=== PATIENT | male | born 1995 | race Caucasian/White ===

== ENCOUNTER 2022-05-02 08:16 | Emergency (ER) | payer OTHER, SELFPAY ==
[2022-05-02 08:12] VITALS: BP 99/65; PULSE 70; RESP 18; TEMP 38.3; O2SAT 98; BMI 21.7
--- NOTE | 2022-05-02 08:12 | PC.NURSE ---
ED MD AT BEDSIDE FOR EVALUATION
[2022-05-02 08:13] VITALS: BMI 21.7
--- NOTE | 2022-05-02 08:26 | PC.NURSE ---
ED MD AT BEDSIDE FOR PROCEDURE
[2022-05-02 08:37] VITALS: BP 111/60; PULSE 84; RESP 18; O2SAT 98
--- NOTE | 2022-05-02 08:43 | HMH.EDGENADL ---
ED Disposition Clinical Impression: Dental abscess, Dental caries Disposition: Home, Self-Care Condition on Discharge: Good Instructions: DI for Dental Pain, DI for Tooth Decay, DI for Tooth Abscess Additional Instructions: Take clindamycin as prescribed. Odd and ibuprofen as needed for pain. See a dentist as soon as possible for further evaluation. Return immediately if you have an uncontrollable fever greater than 102 degrees, difficulty breathing or shortness of breath, persistent vomiting, or inability to swallow. Prescriptions: Hydrocod/Acet 5/325 mg [Odd 5/325mg tablet] 1 tab PO Q6HP PRN #10 tab PRN Reason: Pain Transmission Status: Sent to [facility] Ibuprofen [Ibuprofen 800mg Tablet] 800 mg PO Q8HP PRN #15 tab PRN Reason: Moderate Pain Transmission Status: Pending to [facility] clindamycin HCL [Clindamycin HCl] 300 mg PO QID #40 cap Transmission Status: Pending to [facility] Referrals: Provider,Referral, MD [Primary Care Provider] - - Critical Care Critical Care Time: No Attestation: On 05/02/22, the high probability of a clinically significant, sudden or life threatening deterioration of the following system(s) required my full and direct attention, intervention and personal management. The time I documented below is in addition to time spent performing reported procedures but includes the following listed in this critical care notation. Medical Decision Making - Adrian Inquiry Pt receiving controlled substance: Yes Adrian was queried for this patient: Yes Risks and benefits of using a controlled substance: were discussed with pt by me Vital Signs: 05/02/22 08:12 05/02/22 08:37 Temperature 100.9 F H Temperature Source Oral Pulse Rate 84 Pulse Rate [Radial] 70 Respiratory Rate 18 18 Blood Pressure 111/60 Blood Pressure [Left Arm] 99/65 L Blood Pressure Mean [Left Arm] 76 Blood Pressure Source Automatic Cuff Blood Pressure Source [Left Arm] Automatic Cuff Blood Pressure Position Sitting Blood Pressure Position [Left Arm] Sitting 02 Sat by Pulse Oximetry 98 98 Oxygen Delivery Method Room Air Room Air Orders (Tests/Meds): ED MEDICATIONS Generic Name Dose Route Start Last Admin Trade Name Freq PRN Reason Stop Dose Admin Hydrocodone Bitart/Acetaminophen 1 tab 05/02/22 08:42 Hydrocodone/Apap 5/325 Mg Tablet PO 05/02/22 08:43 ONCE ONE Clindamycin HCl 300 mg 05/02/22 08:42 Clindamycin 150mg Capsule PO 05/02/22 08:43 ONCE ONE Medical Decision Narrative: Discussed with patient attempting incision and drainage of dental abscess. He is in agreement and consents. General Adult HPI - General Chief complaint: Dental/Oral Stated complaint: JAW PAIN Time Seen by Provider: 05/02/22 08:20 Mode of Arrival: EMS Limitations: No Limitations Description of Symptoms (Recalled from ER Triage Doc. by RN): PT BROUGHT IN VIA EMS FOR 3 DAYS OF RIGHT SIDED JAW AND GUM PAIN - History of Present Illness HPI narrative: Brought in by ambulance with complaint of facial pain and swelling for 3 days. Denies pain in any specific teeth, but has pain and swelling of his right jaw. He feels hot but has not taken his temperature. No drainage. He does not have a dentist and has not seen a dentist in years. - Related Data Previous Rx's Medication Instructions Recorded Hydrocod/Acet 5/325 mg [Odd 1 tab PO Q6HP PRN #10 tab 05/02/22 5/325mg tablet] Ibuprofen [Ibuprofen 800mg 800 mg PO Q8HP PRN #15 tab 05/02/22 Tablet] clindamycin HCL [Clindamycin HCl] 300 mg PO QID #40 cap 05/02/22 Allergies Allergy/AdvReac Type Severity Reaction Status Date / Time PCN (penicillin) Allergy Intermediate I-RASH Uncoded 09/18/17 15:01 [facility] History - Hepatitis A Screen Attestation statement:: This patient has been screened for Hepatitis A risk factors. I have reviewed the patient's past medical history: Yes
[2022-05-02 09:00] VITALS: BP 143/75; PULSE 85; RESP 18; TEMP 36.9; O2SAT 98
== END 2022-05-02 09:00 | disposition home or self-care (01) ==
PROVIDERS: Emergency Provider Emergency Medicine
DX: K04.7 Periapical abscess without sinus (principal); Z88.0 Allergy status to penicillin
CPT/HCPCS: 99212; G0463

== ENCOUNTER 2022-11-15 17:49 | Emergency (ER) | payer OTHER, SELFPAY ==
[2022-11-15 17:50] VITALS: BP 102/70; PULSE 80; RESP 18; TEMP 36.8; O2SAT 96; BMI 20.7
--- NOTE | 2022-11-15 18:12 | ECG_ITS ---
APPROVED REPORT Exam: Resting ECG HR:57 bpm ECG Measurements Heart Rate 57 AXES MT 128 P 74 QRSd 105 QRS 89 QT 381 T 69 QTc 375 Conclusion SINUS BRADYCARDIA BORDERLINE ECG UNCONFIRMED REPORT Electronically signed by : Fred Nice MD 11/17/2022 08:59:17
--- NOTE | 2022-11-15 18:13 | HMH.EDGENADL ---
Discharge Plan Disposition Patient Disposition: Home, Self-Care Condition: Good Prescriptions Prescriptions: New ondansetron 4 mg tablet,disintegrating 4 mg PO Q8H PRN (Reason: nausea and vomiting) 4 Days Qty: 7 0RF Referrals Follow up/Referrals: Provider,Referral, [Primary Care Provider] - See instructions Activity Restrictions/Add. Instructions Additional Instructions/Restrictions: Drink plenty fluids such as Gatorade or Pedialyte. Return for severe abdominal pain or other concerns. Rest and try to minimize stress. Clinical Impressions Clinical Impression: Vomiting Instructions Patient Instructions: DI for Diarrhea and Traveler's Diarrhea -- Adult, DI for Diarrhea and Traveler's Diarrhea -- Child, DI for Nausea -- Adult, DI for Nausea -- Child Discharge ED Provider: Jefe Burt General Adult HPI General Chief complaint: Nausea/Vomiting/Diarrhea Stated complaint: dizzy, vomiting Time Seen by Provider: 11/15/22 18:07 Mode of Arrival: Wheelchair Source of Information: Patient Limitations: No Limitations Description of Symptoms (Recalled from ER Triage Doc. by RN): 27 M presents after becoming really anxious at home and at that time he began vomiting, sweating, and feeling very faint. He did not pass out. NAD on arrival History of Present Illness HPI narrative: Patient presents complaining of vomiting and dizzy spell that began earlier this evening while showering. He states he had a stressful event and subsequent developed symptoms he does not voice feeling homicidal or suicidal. He denies chest or abdominal pain at this time. Related Data Previous Rx's Medication Instructions Recorded ondansetron 4 mg disintegrating 4 mg PO Q8H PRN nausea and 11/15/22 tablet vomiting 4 days #7 tabs Allergies Allergy/AdvReac Type Severity Reaction Status Date / Time PCN (penicillin) Allergy Intermediate I-RASH Uncoded 09/18/17 15:01 [facility] Disclaimer: The information contained in this section may have been updated after the patient was seen, as this information can be updated by other users. Social History Smoking Status: Current some day smoker alcohol intake: never current occupational status: other Travel in the last 8 weeks: None ROS Obtained: Yes All systems reviewed & no additional complaints except as documented Physical Exam General General appearance: alert and in no apparent distress Head Head exam: atraumatic, normocephalic and normal inspection Eye Eye exam: Present normal appearance, PERRL and EOMI ENT ENT exam: Present normal exam, normal oropharynx, mucous membranes moist, TM's normal bilaterally and normal external ear exam Neck Neck exam: Present normal inspection, full ROM and trachea midline; Absent meningismus or lymphadenopathy Chest Chest inspection: Present normal inspection and symmetric chest wall rise; Absent tenderness Respiratory Respiratory exam: Present normal lung sounds bilaterally; Absent respiratory distress Cardiovascular Cardiovascular exam: Present regular rate and normal rhythm; Absent JVD Abdominal Exam Abdominal exam: Present soft and normal bowel sounds; Absent distention, tenderness or guarding Extremities Exam Extremities exam: Present normal inspection, full ROM and normal capillary refill; Absent calf tenderness Back Exam Back exam: Present normal inspection; Absent tenderness Neurological Exam Neurological exam: Present alert and oriented X3 Psychiatric Psychiatric exam: Present normal affect and normal mood Skin Skin exam: Present warm, dry, intact and normal color Lymphatic Lymphatic Findings: no adenopathy Medical Decision Making Medical Records Medical records reviewed: Yes I reviewed the patient's medical records. Adrian Inquiry Pt receiving controlled substance: No Adrian was queried for this patient: No Vital Signs: 11/15/22 17:50 Temperature 98.3 F Temperature Source
[2022-11-15 18:16] LABS: Basophils # 0.1 K/mm3 (0-0.2); Basophils % 1.1 % (0.1-2.0); Eosinophils % 0.6 % (0.1-12.0); Hematocrit 42.4 % (42.0-52.0); Hemoglobin 14.1 g/dL (14.1-18.0); Lymphocytes # 1.6 K/mm3 (0.7-4.5); Lymphocytes % 21.2 % (10-50); Mean Corpuscular HGB Conc 33.4 g/dL (31.8-35.4); Mean Corpuscular Hemoglobin 30.6 pg (27.0-31.2); Mean Corpuscular Volume 91.6 fl (80-94); Mean Platelet Volume 7.6 fl (7.4-10.4); Monocytes # 0.6 K/mm3 (0.1-1.0); Monocytes % 7.3 % (1.7-9.3); Neutrophils # 5.4 K/mm3 (1.8-7.8); Neutrophils % 69.9 % (37.0-80.0); Platelet Count 395 K/mm3 (142-424); Red Blood Count 4.63 M/mm3 (4.60-6.20); Red Cell Distribution Width 13.1 % (11.5-17.5); White Blood Count 7.7 K/mm3 (4.8-10.8)
[2022-11-15 18:29] LABS: Alanine Aminotransferase 18 U/L (12-78); Albumin/Globulin Ratio 1.4 (1.1-1.8); Alkaline Phosphatase 66 U/L (38-126); Anion Gap 11.8 mEq/L (5-15); Aspartate Amino Transferase 24 U/L (17-59); Bilirubin,Total 1.4 mg/dl (0.2-1.3); Blood Urea Nitrogen 17 mg/dl (9-20); Calcium 9.4 mg/dl (8.4-10.2); Carbon Dioxide 27 mmol/L (22.0-30.0); Chloride 107 mmol/L (98-107); Creatinine Clearance Estimated 96 mL/min (50-200); Estimated Glomerular Filt Rate 91 ml/min (>60); GFR (African American) 110 ML/MIN (>60); Globulin 3.6 g/dL (1.3-3.2); Glucose 117 mg/dl (74-100); Potassium 3.8 mmoL/L (3.5-5.1); Sodium 142 mmol/L (136-145); Total Protein,Serum 8.6 g/dl (6.3-8.2)
[2022-11-15 19:05] VITALS: BP 119/70; PULSE 84; RESP 17; TEMP 36.8; O2SAT 96
== END 2022-11-15 19:13 | disposition home or self-care (01) ==
PROVIDERS: Emergency Provider Emergency Medicine
DX: R42 Dizziness and giddiness (principal); R11.10 Vomiting, unspecified; F17.210 Nicotine dependence, cigarettes, uncomplicated
CPT/HCPCS: 80053; 85025; 93005; 96361; 96374; 99285; J2405

== ENCOUNTER 2023-11-15 17:05 | Emergency (ER) | payer OTHER, SELFPAY ==
[2023-11-15 17:16] VITALS: BP 119/65; PULSE 60; RESP 18; TEMP 36.8; O2SAT 99; BMI 20.3
--- NOTE | 2023-11-15 17:45 | ECG_ITS ---
APPROVED REPORT Exam: Resting ECG HR:52 bpm ECG Measurements Heart Rate [address] 129 P 73 QRSd 107 QRS 93 QT 389 T 71 QTc 369 Conclusion SINUS BRADYCARDIA BORDERLINE RIGHT AXIS DEVIATION [QRS AXIS > 90] BORDERLINE ECG UNCONFIRMED REPORT Electronically signed by : Fred Nice MD 11/15/2023 19:55:13
--- NOTE | 2023-11-15 17:58 | ED_ITS ---
Discharge Plan Disposition Patient Disposition: Home, Self-Care Prescriptions Prescriptions: New ondansetron 4 mg tablet,disintegrating 4 mg PO Q6H PRN (Reason: nausea and vomiting) Qty: 10 0RF famotidine [Pepcid] 20 mg tablet 20 mg PO BID 28 Days Qty: 56 0RF No Action ondansetron 4 mg tablet,disintegrating 4 mg PO Q8H PRN (Reason: nausea and vomiting) 4 Days Qty: 7 0RF Referrals Follow up/Referrals: Fred Nice MD [Primary Care Provider] - See instructions Activity Restrictions/Add. Instructions Additional Instructions/Restrictions: Zofran every 6 hours under the tongue for nausea and vomiting. Take before meals to encourage appetite. Pepcid (famotidine) twice daily for 4 weeks to help with inflammation in your stomach. Call your family doctor to establish care for this visit to the emergency department and schedule follow-up within 48 hours to ensure improvement. If you have any worsening of your condition or any other concerning signs or symptoms, return to the emergency department or your primary care doctor for further evaluation. Clinical Impressions Clinical Impression: Vomiting Qualifiers: Vomiting type: unspecified Nausea presence: with nausea Qualified Code(s): R11.2 - Nausea with vomiting, unspecified Instructions Patient Instructions: DI for Diarrhea and Traveler's Diarrhea -- Adult, DI for Diarrhea and Traveler's Diarrhea -- Child, DI for Nausea -- Adult, DI for Nausea -- Child Discharge ED Provider: Jefe Tran General Adult HPI General Chief complaint: Nausea/Vomiting/Diarrhea Stated complaint: nausea, weak Time Seen by Provider: 11/15/23 17:13 Mode of Arrival: Ambulatory Source of Information: Patient Limitations: No Limitations Description of Symptoms (Recalled from ER Triage Doc. by RN): Patient reports weakness and vomiting since yesterday. Patient denies any fever or diarrhea. History of Present Illness HPI narrative: Otherwise healthy 28-year-old male presenting with vomiting and weakness. Started yesterday, 11/14. Nonbloody, nonbilious vomiting. Patient has no other associated symptoms including fevers, chills, chest pain, shortness of breath, abdominal pain, flank pain, dysuria, hematuria, diarrhea, or any other concerns. No sick contacts that he knows of. Vomiting is not associated with p.o. intake. Related Data Previous Rx's Medication Instructions Recorded ondansetron 4 mg disintegrating 4 mg PO Q8H PRN nausea and 11/15/22 tablet vomiting 4 days #7 tabs famotidine 20 mg tablet (Pepcid) 20 mg PO BID 4 weeks #56 tabs 11/15/23 ondansetron 4 mg disintegrating 4 mg PO Q6H PRN nausea and 11/15/23 tablet vomiting #10 tabs Allergies Allergy/AdvReac Type Severity Reaction Status Date / Time PCN (penicillin) Allergy Intermediate I-RASH Uncoded 09/18/17 15:01 [facility] Disclaimer: The information contained in this section may have been updated after the patient was seen, as this information can be updated by other users. Social History Smoking Status: Former smoker alcohol intake: never current occupational status: other Travel in the last 8 weeks: None ROS Obtained: Yes All systems reviewed & no additional complaints except as documented Physical Exam General General appearance: alert and in no apparent distress Head Head exam: atraumatic and normocephalic Eye Eye exam: Present normal appearance, PERRL and EOMI ENT ENT exam: Present mucous membranes moist Neck Neck exam: Present normal inspection, full ROM and trachea midline Respiratory Respiratory exam: Absent respiratory distress, wheezes, stridor, accessory muscle use or prolonged expiratory phase Cardiovascular Cardiovascular exam: Present normal rhythm Abdominal Exam Abdominal exam: Present soft; Absent distention, tenderness, guarding, rebound or rigidity Extremities Exam Extremities exam: Absent edema Neurological Exam Neurological exam: Present alert, oriented X3, CN II-XII intact and normal gait; Absent motor sensory deficit Skin Skin exam: Present warm and dry; Absent diaphoresis or erythema Medical Decision Making Medical Records Medical records reviewed: Yes I reviewed the patient's medical records. Adrian Inquiry Pt receiving controlled substance: No Adrian was queried for this patient: No Vital Signs: 11/15/23 17:16 11/15/23 18:41 Temperature 98.3 F Temperature Source Oral Pulse Rate 75 Pulse Rate [Right Brachial] 60 Respiratory Rate 18 Blood Pressure 116/77 Blood Pressure [Right Arm] 119/65 Blood Pressure Mean [Right Arm] 83 Blood Pressure Source [Right Arm] Automatic Cuff Blood Pressure Position [Right Arm] Sitting 02 Sat by Pulse Oximetry 99 97 Oxygen Delivery Method Room Air Room Air Lab Data Lab Results 11/15/23 18:12: WBC 6.3, RBC 4.56 L, Hgb 14.6, Hct 42.2, MCV 92.5, MCH 32.1 H, MCHC 34.7, RDW 13.4, Plt Count 294, MPV 7.5, Neut % (Auto) 65.0, Lymph % (Auto) 27.5, Murray % (Auto) 5.9, Eos % (Auto) 1.2, Baso % (Auto) 0.5, Neut # (Auto) 4.1, Lymph # (Auto) 1.7, Murray # (Auto) 0.4, Eos # (Auto) 0.1, Baso # (Auto) 0.0, Sodium 139, Potassium 3.9, Chloride 103, Carbon Dioxide 29, Anion Gap 10.9, BUN 11, Creatinine 1.00, Estimated Creat Clear 108, Estimated GFR 90, Est GFR ( Amer) 109, Glucose 99, Calcium 9.1, Magnesium 2.1, Total Bilirubin 0.6, AST 23, ALT 16, Alkaline Phosphatase 71, Troponin I < 0.01, Total Protein 7.7, Albumin 4.6, Globulin 3.1, Albumin/Globulin Ratio 1.5, Lipase 88, SARS-CoV-2 (PCR) Not detected, Influenza A Untype (PCR) Not detected, Influenza Type B (PCR) Not detected 11/15/23 18:12 11/15/23 18:12 Orders (Tests/Meds): ED MEDICATIONS Discontinued Medications Generic Name Dose Route Start Last Admin Trade Name Freq PRN Reason Stop Dose Admin Lactated Ringer's 1,000 mls @ 999 mls/hr 11/15/23 18:00 11/15/23 18:16 Lactated Ringer's 1000 Ml Bag IV 11/15/23 19:00 999 mls/hr .Q1H1M ONE Administration Ondansetron HCl 4 mg 11/15/23 17:41 11/15/23 18:16 Ondansetron 4mg Odt SL 11/15/23 17:42 4 mg ONCE ONE Administration ORDERS Category Date Time Status CBC w/Auto Diff [Complete Blood Count Auto Diff] Stat Lab 11/15/23 18:12 Completed CMP [Comprehensive Metabolic Panel] Stat Lab 11/15/23 18:12 Completed Lipase Stat Lab 11/15/23 18:12 Completed Magnesium Stat Lab 11/15/23 18:12 Completed Rapid PCR Covid and Flu A/B Stat Lab 11/15/23 18:12 Completed Trop I [Troponin I] Stat Lab 11/15/23 18:12 Completed Troponin I Q3H Lab 11/15/23 21:00 Ordered Troponin I Q3H Lab 11/16/23 00:00 Ordered ECG initial [place] Routine Y 11/15/23 17:45 Completed Medical Decision Narrative: Otherwise healthy 28-year-old male presenting with vomiting and weakness. Started yesterday, 11/14. Nonbloody, nonbilious vomiting. Patient has no other associated symptoms including fevers, chills, chest pain, shortness of breath, abdominal pain, flank pain, dysuria, hematuria, diarrhea, or any other concerns. No sick contacts that he knows of. Vomiting is not associated with p.o. intak e. History was obtained via conversation with patient. On arrival, patient hemodynamically stable, alert, oriented x4, appropriate, GCS 15, moving all extremities spontaneously, pupils equal and reactive to light. Full physical exam performed and significant for well-appearing male no acute distress. Moist mucous membranes, intermittently bradycardic. Abdomen is soft, nonperitoneal neck. Lungs are clear to auscultation bilaterally. Cardiac exam otherwise normal. Differential includes gastritis, enteritis, viral syndrome, metabolic abnormality, dehydration, among others. Patient was given fluid bolus, Zofran for symptomatic management and correction of underlying abnormalities. Workup independently interpreted and significant for nonactionable CBC or chemistry. Lipase negative, troponin negative, flu negative. See radiology read for full review of final results. Independent interpretation of EKG shows sinus bradycardia 52 beats a minute with no ST or T wave changes concerning for acute ischemia, but T waves appear mildly peaked V2 and V3. LA, QRS, QT intervals within normal limits. [place] normal. Labs were obtained at this time. Hematologic workup demonstrated findings above. Heart score 0. On reevaluation, patient tolerating p.o. intake without issue. Given patient presentation, workup, history, this most likely represents acute gastritis versus other vomiting syndrome. Because patient at baseline without signs or symptoms of clinical decompensation, deemed appropriate for discharge. Results were relayed to patient who voiced understanding and were agreeable to outpatient management and follow up. At the time of discharge the patient was hemodynamically stable, tolerating PO, and mobilizing appropriately. I feel it unlikely that patient has acute intra-abdominal surgical emergency or other medical emergency given very well-appearing patient on his phone, without complaints on reevaluation and tolerating p.o. intake. Abdominal exam entirely benign. Patient agreeable to outpatient management. Critical Care Critical Care Time Critical Care Time: No
[2023-11-15] MEDS: ONDANSETRON 4MG ODT 4 MG SL (18:16)
[2023-11-15] MEDS: LACTATED RINGERS 1000ML 1,000 ML 999 ML IV (18:16)
[2023-11-15 18:38] LABS: Coronavirus 19, PCR Not Detected (NotDetected); Influenza A, PCR Not Detected (NotDetected); Influenza B, PCR Not Detected (NotDetected)
[2023-11-15 18:41] VITALS: BP 116/77; PULSE 75; O2SAT 97
--- NOTE | 2023-11-15 18:41 | PC.NURSE ---
Rounded on pt. No needs voiced at this time. Call light within reach.
[2023-11-15 18:46] LABS: Alanine Aminotransferase 16 U/L (12-78); Albumin Level 4.6 g/dl (3.5-5.0); Albumin/Globulin Ratio 1.5 (1.1-1.8); Alkaline Phosphatase 71 U/L (38-126); Anion Gap 10.9 mEq/L (5-15); Aspartate Amino Transferase 23 U/L (17-59); Bilirubin,Total 0.6 mg/dl (0.2-1.3); Blood Urea Nitrogen 11 mg/dl (9-20); Calcium 9.1 mg/dl (8.4-10.2); Carbon Dioxide 29 mmol/L (22.0-30.0); Chloride 103 mmol/L (98-107); Creatinine Clearance Estimated 108 mL/min (50-200); Estimated Glomerular Filt Rate 90 ml/min (>60); GFR (African American) 109 ML/MIN (>60); Globulin 3.1 g/dL (1.3-3.2); Glucose 99 mg/dl (74-100); Lipase 88 U/L (23-300); Magnesium 2.1 mg/dl (1.6-2.3); Potassium 3.9 mmoL/L (3.5-5.1); Sodium 139 mmol/L (136-145); Total Protein,Serum 7.7 g/dl (6.3-8.2)
[2023-11-15 18:48] LABS: Basophils % 0.5 % (0.1-2.0); Eosinophils # 0.1 K/mm3 (0.0-0.4); Eosinophils % 1.2 % (0.1-12.0); Hematocrit 42.2 % (42.0-52.0); Hemoglobin 14.6 g/dL (14.1-18.0); Lymphocytes # 1.7 K/mm3 (0.7-4.5); Lymphocytes % 27.5 % (10-50); Mean Corpuscular HGB Conc 34.7 g/dL (31.8-35.4); Mean Corpuscular Hemoglobin 32.1 pg (27.0-31.2); Mean Corpuscular Volume 92.5 fl (80-94); Mean Platelet Volume 7.5 fl (7.4-10.4); Monocytes # 0.4 K/mm3 (0.1-1.0); Monocytes % 5.9 % (1.7-9.3); Neutrophils # 4.1 K/mm3 (1.8-7.8); Platelet Count 294 K/mm3 (142-424); Red Blood Count 4.56 M/mm3 (4.60-6.20); Red Cell Distribution Width 13.4 % (11.5-17.5); White Blood Count 6.3 K/mm3 (4.8-10.8)
[2023-11-15 19:01] LABS: Troponin I < 0.01 ng/ml (0.00-0.034)
[2023-11-15 19:41] VITALS: BP 104/53; PULSE 64; RESP 16; TEMP 36.9; O2SAT 100
== END 2023-11-15 19:45 | disposition home or self-care (01) ==
PROVIDERS: Emergency Provider Emergency Medicine; PCP Internal Medicine Adolescent Medicine
DX: R11.2 Nausea with vomiting, unspecified (principal); R19.7 Diarrhea, unspecified; R00.1 Bradycardia, unspecified; R53.1 Weakness
CPT/HCPCS: 80053; 83690; 83735; 84484; 85025; 87636; 93005; 96360; 99284

== ENCOUNTER 2024-01-23 20:03 | Emergency (ER) | payer OTHER, SELFPAY ==
[2024-01-23 20:03] VITALS: BP 113/63; PULSE 101; RESP 16; TEMP 39.1; O2SAT 99; BMI 22.4
[2024-01-23] MEDS: ACETAMINOPHEN 500MG TAB 1000 MG PO (20:16)
[2024-01-23] MEDS: IBUPROFEN 800 MG TABLET PO (20:18)
[2024-01-23 20:23] LABS: Coronavirus 19, PCR Not Detected (NotDetected); Influenza A, PCR Not Detected (NotDetected); Influenza B, PCR Not Detected (NotDetected)
--- NOTE | 2024-01-23 20:30 | ED_ITS ---
Discharge Plan Disposition Patient Disposition: Home, Self-Care Prescriptions Prescriptions: No Action No Known Home Medications Referrals Follow up/Referrals: Fred Nice MD [Primary Care Provider] - See instructions Activity Restrictions/Add. Instructions Additional Instructions/Restrictions: Call your family doctor to establish care for this visit to the emergency department and schedule follow-up within 48 hours to ensure improvement. If you have any worsening of your condition or any other concerning signs or symptoms, return to the emergency department or your primary care doctor for further evaluation. Take Tylenol 1000 mg every 6 hours (4 times daily) and ibuprofen 400 mg every 6 hours (4 times daily) as needed with food and water to prevent GI upset and kidney damage. Clinical Impressions Clinical Impression: Acute viral syndrome Discharge ED Provider: Jefe Tran General Adult HPI General Chief complaint: Fever Stated complaint: fever at home of 100.8 Time Seen by Provider: 01/23/24 20:04 Mode of Arrival: EMS Source of Information: Patient Limitations: No Limitations Description of Symptoms (Recalled from ER Triage Doc. by RN): pt c/o cough and fever since yesterday History of Present Illness HPI narrative: Please note that above description of symptoms, in this electronic medical record under categorization of recalled from ER triage doctor by RN are reflective of an initial nursing assessment, however, is not reflective of my full history and physical exam that was personally taken and clarified. Consequentially, this preceding description of symptoms, which may include the patient's categorized chief complaint in the EMR, do not reflect my personal clinical impression, and the ultimate description of history of present illness and patient stated complaints should be deferred to this section of the note. Unless stated otherwise or congruent with this section of the note, additional signs, symptoms, or incongruence should be interpreted as inaccurate with my clinical impression. Related Data Home Medications Medication Instructions Recorded Confirmed No Known Home Medications 01/23/24 01/23/24 Allergies Allergy/AdvReac Type Severity Reaction Status Date / Time PCN (penicillin) Allergy Intermediate I-RASH Uncoded 09/18/17 15:01 [facility] Disclaimer: The information contained in this section may have been updated after the patient was seen, as this information can be updated by other users. Medical History (Updated 01/23/24 @ 21:15 by Jefe Tran MD) No significant past medical history Surgical History (Updated 01/23/24 @ 20:22 by Emmanuel Best, RN) No history of previous surgery Family History (Updated 01/23/24 @ 20:22 by Emmanuel Best, RN) Other No significant family history Social History (Updated 01/23/24 @ 20:23 by Emmanuel Best, RN) Smoking Status: Never smoker alcohol intake: never current occupational status: unemployed and other Travel in the last 8 weeks: None ROS Obtained: Yes All systems reviewed & no additional complaints except as documented Physical Exam General General appearance: alert and in no apparent distress Head Head exam: atraumatic and normocephalic Eye Eye exam: Present normal appearance, PERRL and EOMI ENT ENT exam: Present mucous membranes moist Neck Neck exam: Present normal inspection, full ROM and trachea midline Respiratory Respiratory exam: Absent respiratory distress, wheezes, stridor, accessory muscle use or prolonged expiratory phase Cardiovascular Cardiovascular exam: Present normal rhythm Abdominal Exam Abdominal exam: Present soft; Absent distention, tenderness, guarding, rebound or rigidity Extremities Exam Extremities exam: Absent edema Neurological Exam Neurological exam: Present alert, oriented X3, CN II-XII intact and normal gait; Absent motor sensory deficit Skin Skin exam: Present warm and dry; Absent diaphoresis or erythema Medical Decision Making Medical Records Medical records reviewed: Yes I reviewed the patient's medical records. Adrian Inquiry Pt receiving controlled substance: No Adrian was queried for this patient: No Vital Signs: 01/23/24 20:03 Temperature 102.3 F H Temperature Source Oral Pulse Rate [Right] 101 H Respiratory Rate 16 Blood Pressure [Right Arm] 113/63 Blood Pressure Mean [Right Arm] 79 02 Sat by Pulse Oximetry 99 Lab Data Lab Results 01/23/24 20:17: SARS-CoV-2 (PCR) Not detected, Influenza A Untype (PCR) Not detected, Influenza Type B (PCR) Not detected Orders (Tests/Meds): ED MEDICATIONS Discontinued Medications Generic Name Dose Route Start Last Admin Trade Name Freq PRN Reason Stop Dose Admin Acetaminophen 1,000 mg 01/23/24 20:09 01/23/24 20:16 Acetaminophen 500mg Tab PO 01/23/24 20:10 1,000 mg ONCE ONE Administration Ibuprofen 800 mg 01/23/24 20:09 01/23/24 20:18 Ibuprofen 800 Mg Tablet PO 01/23/24 20:10 800 mg ONCE ONE Administration ORDERS Category Date Time Status Rapid PCR Covid and Flu A/B Stat Lab 01/23/24 20:17 Completed Medical Decision Narrative: 28-year-old male with no relevant medical history presenting with fever. Patient states that he had a cough that started yesterday. Is nonproductive, no vomiting or diarrhea. No sick contacts he knows of. No body aches, or any other symptoms. He states that he has been taking NyQuil and DayQuil, these have not helped with his fever. He tried taking a cold bath, that did not help either. Fever of 100.8 degrees at home, this was after cold bath, so he came to the emergency department via EMS. History obtained with patient and EMS. On my evaluation, patient febrile 102.3 pulse of 101, normotensive, no acute distress. His lungs are clear to auscultation anterior and posterior bilaterally. He is not actively coughing or retching. He honestly appears very well, does not feel febrile currently. Patient was given Tylenol and Motrin. For symptomatic management and correction of underlying abnormalities. Workup independently interpreted and significant for negative COVID and flu swab. Chest x-ray was considered, but given duration of illness being less than 24 hours, no focal findings on physical exam, deemed unnecessary at this time. On reevaluation, patient's vitals improved, afebrile. Given history and physical exam, as well as viral swab, this most likely represents acute viral syndrome. Because patient at baseline without signs or symptoms of clinical decompensation, deemed appropriate for discharge. Results were relayed to patient who voiced understanding and were agreeable to outpatient management and follow up. I discussed my clinical impression with patient and answered all questions. At this time, the evidence for any other entities in the differential is insufficient to warrant any further testing or ED observation. This was explained as well. Advisory was given that persistent or worsening symptoms require further evaluation. I confirmed the understanding of this discussion. Critical Care Critical Care Time Critical Care Time: No
--- NOTE | 2024-01-23 20:59 | PC.NURSE ---
Attending notified results harry stern
[2024-01-23 21:17] VITALS: BP 110/58; PULSE 82; RESP 16; TEMP 37.2; O2SAT 96
[2024-01-23 21:19] VITALS: BP 110/58; PULSE 82; RESP 16; TEMP 37.2; O2SAT 96
== END 2024-01-23 21:21 | disposition home or self-care (01) ==
PROVIDERS: Emergency Provider Emergency Medicine; PCP Internal Medicine Adolescent Medicine
DX: R05.9 Cough, unspecified (principal); R50.9 Fever, unspecified; B34.9 Viral infection, unspecified
CPT/HCPCS: 87636; 99283